=== PATIENT | female | born 1960 | race Two or more races ===

== ENCOUNTER 2024-10-12 03:18 | Inpatient (IN) | payer MEDICAID ==
[~2024-10-12] VITALS: Ht 162.6 cm; Wt 72.6 kg
[2024-10-12] MEDS ORDERED: NOREPINEPHRINE BITARTRATE 8 MG in IV DEXTROSE 5% 500 ML IV PRN (04:30)
[2024-10-12] MEDS ORDERED: INSULIN REGULAR, HUMAN 1000 UNIT/10 ML VIAL SQ PRN ×2 (04:30)
[2024-10-12] MEDS ORDERED: DEXTROSE 50% 50 ML DISP.SYRIN IV PRN ×2 (04:30)
[2024-10-12] MEDS ORDERED: BLOOD SUGAR DIAGNOSTIC 1 EACH STRIP VI SCH ×2 (05:00)
[2024-10-12] MEDS ORDERED: VANCOMYCIN IV 1,000 MG in IV DEXTROSE 5% 250 ML IV SCH (06:00)
== END 2024-10-12 05:49 | disposition still patient (30) | DRG 133 ==
LOC: CCU 03:37
PROC: 0BH17EZ Insertion of Endotracheal Airway into Trachea, Via Natural or Artificial Opening (ICD-10-PCS; principal; 2024-10-12)
PROC: 5A1935Z Respiratory Ventilation, Less than 24 Consecutive Hours (ICD-10-PCS; principal; 2024-10-12)
DX: J96.21 Acute and chronic respiratory failure with hypoxia (principal); N17.0 Acute kidney failure with tubular necrosis
CPT/HCPCS: 36415; 85610; G0378; J1815; J3373; J7050